=== PATIENT | male | born 1960 ===

== ENCOUNTER 2018-04-23 01:28 | Emergency (ER) | payer SELFPAY ==
[2018-04-23] MEDS ORDERED: Ciprofloxacin HCL/Dexameth Otic Drops 7.5 ml Bottle L EAR SCH (02:00)
== END 2018-04-23 02:14 | disposition home or self-care (01) ==
LOC: ERS 01:28
DX: H60.92 Unspecified otitis externa, left ear (principal); I10 Essential (primary) hypertension; F43.10 Post-traumatic stress disorder, unspecified
CPT/HCPCS: 36416; 99283